=== PATIENT | female | born 1995 | race Two or more races ===

== ENCOUNTER 2024-10-11 17:10 | Emergency (ER) | payer MEDICAID, OTHER ==
[~2024-10-11] VITALS: Ht 154.9 cm; Wt 68.0 kg
[2024-10-11 18:40] LABS: Urine Bacteria FEW /hpf (None Seen); Urine Blood 3+ /uL (Negative); Urine Clarity Turbid (Clear); Urine Color Colorless (Yellow); Urine Protein, UAD Negative (Negative); Urine Specific Gravity 1.005 (1.001-1.035); Urine Sperm PRESENT /hpf (None Seen); Urine Squamous Epithelial Cell FEW /hpf (<5); Urine Urobilinogen Normal (Negative); Urine WBC 5 /hpf (0 - 5)
[2024-10-11 19:20] VITALS: BP 102/68; PULSE 93; RESP 18; TEMP 98; O2SAT 98
--- NOTE | 2024-10-11 20:34 | ED.PDOC ---
History of Present Illness HPI Comments 29 y/o F presents with c/o vaginal bleeding, today. Patient endorses on being 12x weeks , currently, and noticing blood when she wipe, this evening, with no prior Hx of in the past. She comments on having established care with an EGG PACKER, currently, and last receiving an US, earlier, this month. She denies any abdominal pain, nausea, vomiting, diarrhea, or other symptoms at this time. Chief Complaint: Vaginal Bleed Time Seen by MD: 20:20 Reviewed Notes: Nurses Notes, Medications, Allergies Allergies: Coded Allergies: NO KNOWN ALLERGIES (Unverified , 10/11/24) Information Source: Patient Mode of Arrival: Ambulatory Past Medical History PAST MEDICAL HISTORY: Denies Surgical History: Denies all surgeries LAP MAKER History: Denies all LAP MAKER Hx Family History Family History: Unknown Social History Smoker: Non-Smoker Alcohol: Denies ETOH Use Drugs: Denies Drug Use Lives In: Home Genitourinary: reports: abnormal vagina bleeding All Other Systems: Reviewed and Negative (negative unless otherwise stated above or in HPI) Physical Exam General Appearance: No Apparent Distress, Normal HEENT: Normal ENT Inspection, Pharynx Normal, TMs Normal Neck: Full Range of Motion, Non-Tender, Normal, Normal Inspection Respiratory: Chest Non-Tender, Lungs Clear, No Accessory Muscle Use, No Respiratory Distress, Normal Breath Sounds Cardiovascular: No Edema, No JVD, No Murmur, No Gallop, Normal Peripheral Pulses, Regular Rate/Rhythm Breast Exam: Deferred Gastrointestinal: No Organomegaly, Non Tender, No Pulsatile Mass, Normal Bowel Sounds, Soft Genitalia: Deferred Pelvic: Deferred Rectal: Deferred Extremities: No calf tenderness, Normal capillary refill, Normal inspection, Normal range of motion, Non-tender, No pedal edema Musculoskeletal : Apperance: Normal Neurologic: Alert, register repairer II-XII nml as Tested, No Motor Deficits, Normal Affect, Normal Mood, No Sensory Deficits Cerebellar Function: Normal Reflexes: Normal Skin: Dry, Normal Color, Warm Lymphatic: No Adenopathy Was a procedure done? Was a procedure done?: No Differential Dx Considerations may include: Threatened X-Ray, Labs, Meds, VS Vital Signs Date Time Temp Pulse Resp B/P (MAP) Pulse Ox O2 Delivery O2 Flow Rate FiO2 10/11/24 19:20 93 18 98 Room Air* 0 21 10/11/24 19:20 98.0 93 18 102/68 (79) 98 98.0 10/11/24 17:43 98.8 93 16 103/69 (80) 98 Lab Test 10/11/24 18:20 Range/Units Urine Color Colorless Yellow Urine Clarity Turbid H Clear Urine pH 7.0 5.0-9.0 Urine Specific [place] 1.005 1.001-1.035 Urine Protein Negative Negative Urine Ketones Negative Negative Urine Blood 3+ H Negative /uL Urine Nitrite Negative Negative Urine Bilirubin Negative Negative Urine Urobilinogen Normal Negative mg/dL Urine Leukocyte Esterase Negative Negative /uL Urine RBC 37 0 - 4 /hpf Urine WBC 5 0 - 5 /hpf Urine Squamous Epithelial Cells Few <5 /hpf Urine Bacteria Few H None Seen /hpf Urine Sperm Present None Seen /hpf Urine Glucose Normal Normal mg/dL Urine Test Positive Negative Time of 1ST Reevaluation: 20:50 Reevaluation 1ST: Unchanged Patient Education/Counseling: Diagnosis, Treatment Family Education/Counseling: No Family Present Critical Care Note Critical Care Time?: No Stability Stability form required: No Heart Score Heart Score: Heart Score Response (Comments) Value History N/A 0 EKG N/A 0 Age N/A 0 Risk Factors N/A 0 Troponin N/A 0 Total 0 I personally scribed for VENKAT MARQUES MD ([email or web address]) on 10/11/24 at 20:34. Electronically submitted by Juan Mares [email or web address]). VENKAT MARQUES MD Oct 11, 2024 20:34
[2024-10-11 20:40] LABS: Basophils # (auto) 0.1 10 ^3/uL (0-0.2); Basophils % (auto) 0.7 % (0.0-2.0); Eosinophils # (auto) 0.2 10 ^3/uL (0-0.8); Eosinophils % (auto) 1.2 % (0.0-7.0); Hematocrit 43.7 % (36.0-46.0); Lymphocytes # (auto) 3.3 10 ^3/uL (0.4-5.4); Mean Corpuscular Hemoglobin 30.2 pg (28.0-32.0); Mean Corpuscular Hgb Conc. 34.3 g/dL (32.0-36.0); Mean Corpuscular Volume 88.2 fL (80.0-100.0); Monocytes # (auto) 0.9 10 ^3/uL (0-1.3); Monocytes % (auto) 6.4 % (0.0-12.0); Neutrophils # (auto) 9.3 10 ^3/uL (1.6-8.6); Neutrophils % (auto) 67.7 % (37.0-80.0); Nucleated Red Blood Cells % 0.1 %; Platelet Count (auto) 308 10^3/uL (140-450); Red Blood Cells 4.95 10^6/uL (4.0-5.20); Red Cell Distribution Width 13.4 % (11.8-14.3); White Blood Cell 13.8 10^3/uL (4.4-10.8)
== END 2024-10-11 23:34 | disposition left against medical advice (07) ==
LOC: ER 17:10
DX: O20.9 Hemorrhage in early pregnancy, unspecified (principal); Z3A.12 12 weeks gestation of pregnancy
CPT/HCPCS: 36415; 81001; 81025; 84702; 85025

== ENCOUNTER 2025-03-23 11:10 | Inpatient (IN) | payer MEDICAID ==
[2025-03-23] VITALS (14 sets, daily range): BP systolic 104–137; BP diastolic 63–92; PULSE 88–126; RESP 12–18; TEMP 97.9–98.9; O2SAT 97–99
[~2025-03-23] VITALS: Ht 139.7 cm; Wt 72.1 kg
[2025-03-23] MEDS: LACTATED RINGER'S 1,000 ML IV SCH (11:30)
[2025-03-23] MEDS: LACTATED RINGER'S 1,000 ML IV ONE (11:30)
[2025-03-23 12:12] LABS: Basophils # (auto) 0.1 10 ^3/uL (0-0.2); Eosinophils # (auto) 0.1 10 ^3/uL (0-0.8); Eosinophils % (auto) 0.7 % (0.0-7.0); Hematocrit 44.2 % (36.0-46.0); Lymphocytes # (auto) 2.3 10 ^3/uL (0.4-5.4); Lymphocytes % (auto) 20.3 % (10.0-50.0); Mean Corpuscular Hemoglobin 31.6 pg (28.0-32.0); Mean Corpuscular Volume 92.9 fL (80.0-100.0); Monocytes # (auto) 0.8 10 ^3/uL (0-1.3); Monocytes % (auto) 7.2 % (0.0-12.0); Neutrophils # (auto) 7.9 10 ^3/uL (1.6-8.6); Neutrophils % (auto) 70.8 % (37.0-80.0); Nucleated Red Blood Cells % 0.1 %; Platelet Count (auto) 250 10^3/uL (140-450); Red Blood Cells 4.75 10^6/uL (4.0-5.20); Red Cell Distribution Width 13.9 % (11.8-14.3); White Blood Cell 11.2 10^3/uL (4.4-10.8)
[2025-03-23] MEDS: ceFAZolin 2 GM/D5W50ml 50 ML IV ONE (12:13)
[2025-03-23 12:25] LABS: INR 0.92 (0.9-1.15); Partial Thromboplastin Time 26.2 SEC (24.5-34.5); Prothrombin Time 9.8 sec (9.3-11.8)
[2025-03-23 12:28] LABS: Alanine Aminotransferase 75 U/L (7-40); Albumin 4.1 g/dL (3.2-4.8); Alkaline Phosphatase 499 U/L (46-116); Anion Gap 9 (5-15); Aspartate Aminotransferase 54 U/L (<34); BUN/Creatinine Ratio 10.6 (10.0-20.0); Bilirubin, Total 0.7 mg/dL (0.2-1.0); Blood Urea Nitrogen < 5 mg/dL (9-23); Calcium 9.1 mg/dL (8.7-10.4); Carbon Dioxide 22 mmol/L (20-31); Chloride 105 mmol/L (98-107); Glucose 91 mg/dL (74-106); Potassium 3.7 mmol/L (3.5-5.1); Sodium 136 mmol/L (136-145); Total Protein 7.6 g/dL (5.7-8.2)
[2025-03-23] MEDS ORDERED: HYDR-4072 PO (12:32)
[2025-03-23] MEDS ORDERED: IBUP-1456 PO (12:32)
[2025-03-23] MEDS ORDERED: CEPH500C PO (12:32)
[2025-03-23] MEDS ORDERED: DOCU-94 PO (12:32)
[2025-03-23 12:45] LABS: Urine Bacteria FEW /hpf (None Seen); Urine Blood 1+ /uL (Negative); Urine Clarity Turbid (Clear); Urine Color Colorless (Yellow); Urine Protein, UAD Negative (Negative); Urine Specific Gravity 1.004 (1.001-1.035); Urine Squamous Epithelial Cell MANY /hpf (<5); Urine Urobilinogen Normal (Negative); Urine WBC 55 /HPF (0-5)
[2025-03-23] MEDS ORDERED: ONDANSETRON HCL 4 MG/2 ML VIAL IV PRN ×2 (12:45→14:30)
[2025-03-23] MEDS: GUM (CHEWING) 1 GUM CHEW CHEW ONE (12:45)
[2025-03-23] MEDS: LACT. RINGERS/OXYTOCIN 20UNITS 1,000 ML IV ONE (12:45)
[2025-03-23] MEDS ORDERED: fentaNYL CITRATE 100 MCG/2 ML VL ONE (12:55)
[2025-03-23] MEDS ORDERED: oxyTOCIN 10 UNIT/ML 10ML VIAL ONE (12:55)
[2025-03-23] MEDS ORDERED: MORPHINE SULF PF 5 MG/10 ML VIAL ONE (12:55)
[2025-03-23] MEDS ORDERED: DexAMETHasone SOD PHOS 10MG/1ML VIAL INJ ONE (12:56)
[2025-03-23] MEDS ORDERED: KETOROLAC TROMETH 30 MG/ML 1ML VIAL ONE (12:56)
[2025-03-23] MEDS ORDERED: ONDANSETRON HCL 4 MG/2 ML VIAL ONE (12:56)
[2025-03-23 13:03] LABS: Amphetamine Screen, Urine Neg (NEGATIVE); Barbiturate Scree,Urine Neg (NEGATIVE); Benzodiazephine Screen, Urine Neg (NEGATIVE); Cannabinoid Screen, Urine Neg (NEGATIVE); Cocaine Screen, Urine Neg (NEGATIVE); Opiate Scree,Urine Neg (NEGATIVE); Phencyclidine Screen, Urine Neg (NEGATIVE)
[2025-03-23] MEDS ORDERED: ePHEDrine SULFATE 50 MG/ML AMP ONE (13:32)
[2025-03-23] MEDS ORDERED: HYDROmorphone HCL 2 MG/ML VL/or syr IV PRN (14:30)
[2025-03-23] MEDS ORDERED: diphenhdrAMINE HCL 50 MG/1 ML VL IV PRN (14:30)
[2025-03-23] MEDS: NALBUPHINE HCL 10 MG/1ml INJECTION IV ONE (14:30)
[2025-03-23] MEDS ORDERED: NALOXONE HCL 0.4 MG/ML VIAL IV PRN (14:30)
--- NOTE | 2025-03-23 14:56 | DVHHP2 ---
Chief Complaints Chief Complaints DATE OF OPERATION:03/23/25 PREOPERATIVE DIAGNOSES: [iup at 33 wks with demise,oligohydramnia,noncompliant with care,desires rcs] POSTOPERATIVE DIAGNOSES: [same,meconium] OPERATION PERFORMED: Repeat Section FINDINGS: [b] . Apgars of [0] and [0]. Weight meconium amniotic fluid. Placenta and three-vessel were intact. Normal tubes, ovaries, and uterus. Moderate scar tissue. SURGEON: Moni Dial D.O. FREELANCE ART DIRECTOR: quality control technician, [chantal rodriguez md]. ANESTHESIOLOGIST: [dg gaston M.D. ANESTHESIA: [Duramorph spinal, regional]. COMPLICATIONS: [none]. ESTIMATED BLOOD LOSS: [500] mL. BLOOD PRODUCTS USED: [na]. PROCEDURE IN DETAIL: The patient was taken to the operating room, placed in sitting position, and spinal was placed without difficulty. She was then prepped and draped in a sterile fashion. A low Pfannenstiel incision was made scapel. At this point, it was carried down through the rectus fascia, nicked in the midline, and carried laterally. The rectus muscles were in the midline. Peritoneum was identified and entered with sharp dissection. Vesicouterine peritoneum was taken off the lower uterine segment. A lower uterine transverse incision was made with a scalpel down the chorionic membranes, ruptured with hemostat. Infant was in vertex position. One hand was placed in the lower uterine segment. Head was essentially delivered spontaneously. there was no fetalm heart tone,zero amniotic fld and thick meconium noted. Cord was cut. The infant was handed off to the awaiting Respiratory. At this point, umbilical blood sample was taken. Placenta was removed. Uterus was exteriorized, cleared off all clots and debris, irrigated, and closed with a double layer of 0-Vicryl. The vesicouterine peritoneum was incorporated into this closure. We had complete hemostasis. EBL was [500] mL. The instrument, lap, and sponge count was correct x1. The uterus was placed back into the peritoneum. The peritoneal cavity was re-inspected and the lower uterine incision with good hemostasis. We closed the peritoneum with running continuous of 2-0 Vicryl. The Rectus Fascia was closed with 0-PDS, running continuous, looped-0. The skin was closed undermined, irrigated, and close with annette. CONDITION: The patient's and the 's condition is stable and but guarded. Allergies and Medications Allergies: Coded Allergies: NO KNOWN ALLERGIES (Unverified , 10/11/24) Home Meds Active Scripts Ibuprofen (Ibuprofen) 800 Mg Tab, 800 MG PO TID PRN for 4 Days, #12 TAB Prov:MONI DIAL DO 03/23/25 Hydrocodone-Acetaminophen (Hydrocodone/Acetaminophen 10-325 mg) 1 Tab Tab, 1 TAB PO Q6HPRN PRN for 6 Days, #24 TAB Prov:MONI DIAL DO 03/23/25 Docusate Sodium (Colace) 100 Mg Cap, 1 CAP PO BID, #60 CAP 2 Refills Prov:MONI DIAL DO 03/23/25 Cephalexin Monohydrate (Cephalexin) 500 Mg Cap, 500 MG PO QID PRN for 7 Days, #28 CAP Prov:MONI DIAL DO 03/23/25 Current Medications Current Medications Medications (Trade) Dose Ordered Sig/Keith Route PRN Reason Start Time Stop Time Status Last Admin Lactated Ringer's 1,000 ml @ 125 mls/hr Q8H IV 03/23/25 11:30 Ondansetron HCl (Zofran) 4 mg Q4HP PRN IV NAUSEA / VOMITING 03/23/25 12:45 03/23/25 14:27 DC Cefazolin Sodium 50 ml @ 100 mls/hr Q8H IV 03/23/25 20:00 03/24/25 12:29 Diphenhydramine HCl (Benadryl Injection) 25 mg Q4HP PRN IV FOR ITCHING 03/23/25 14:30 Ondansetron HCl (Zofran) 4 mg Q4HP PRN IV NAUSEA / VOMITING 03/23/25 14:30 Naloxone HCl (Narcan) 0.2 mg Q5M PRN IV For respirations < than 10/min 03/23/25 14:30 03/23/25 14:36 DC Hydromorphone HCl (Dilaudid Injection) 0.5 mg Q15M PRN IV SEVERE PAIN (7-10 PAIN SCALE) 03/23/25 14:30 03/23/25 15:01 Assessment/Plan Assessment Admitting Diagnosis: Repeat Section Intrauterine Demise 33 weeks Visit Coding OBGYN Date of Service: Mar 23, 2025 Billing Provider: MONI DIAL DO WAD IMPREGNATOR Common Visit Codes: [id number] OBS CARE (HIGH) WAD IMPREGNATOR Procedure Codes: [id number] W/ CARE MONI DIAL DO Mar 23, 2025 14:56
--- NOTE | 2025-03-23 15:12 | DVHOP2 ---
Operative Report DATE OF OPERATION:03/23/25 PREOPERATIVE DIAGNOSES: [iup at 33wks with demise,oligohydramnia,non copliancy with care,desires rcs] POSTOPERATIVE DIAGNOSES: [same,meconium fld,apgars 0/0] OPERATION PERFORMED: Repeat Section FINDINGS: [b] . Apgars of [0] and [0]. [scant amniotic meconium scant] amniotic fluid. Placenta and three-vessel were intact. Normal tubes, ovaries, and uterus. Moderate scar tissue. SURGEON: Moni Dial D.O. BENDER MACHINE OPERATOR: test lab technician, [michael harley]. ANESTHESIOLOGIST: Lilian york ANESTHESIA: [Duramorph spinal, regional]. COMPLICATIONS: [none]. ESTIMATED BLOOD LOSS: [500] mL. BLOOD PRODUCTS USED: [none]. PROCEDURE IN DETAIL: The patient was taken to the operating room, placed in sitting position, and spinal was placed without difficulty. She was then prepped and draped in a sterile fashion. A low Pfannenstiel incision was made scapel. At this point, it was carried down through the rectus fascia, nicked in the midline, and carried laterally. The rectus muscles were in the midline. Peritoneum was identified and entered with sharp dissection. Vesicouterine peritoneum was taken off the lower uterine segment. A lower uterine transverse incision was made with a scalpel down the chorionic membranes, ruptured with hemostat meconium fld was noted very scant. Infant was in vertex position. One hand was placed in the lower uterine segmentthe infant was delivered ,he was very macerated and thick scant meconium was noted. Placenta was removed. cultures was obtained. Uterus was exteriorized, cleared off all clots and debris, irrigated, and closed with a double layer of 0-Vicryl. The vesicouterine peritoneum was incorporated into this closure. We had complete hemostasis. EBL was [500] mL. The instrument, lap, and sponge count was correct x1. The uterus was placed back into the peritoneum. The peritoneal cavity was re-inspected and the lower uterine incision with good hemostasis. We closed the peritoneum with running continuous of 2-0 Vicryl. The Rectus Fascia was closed with 0-PDS, running continuous, looped-0. The skin was closed undermined, irrigated, and close with annette. CONDITION: The patient's and the infant's condition is stable and but guarded. Visit Coding OBGYN Date of Service: Mar 23, 2025 Billing Provider: MONI DIAL DO BRIDGE MAINTENANCE WORKER Common Visit Codes: [id number] OBS CARE (HIGH) BRIDGE MAINTENANCE WORKER Procedure Codes: [id number] DELIVERY ONLY MONI DIAL DO Mar 23, 2025 15:12
--- NOTE | 2025-03-23 15:14 | POSTOP ---
Post-Operative Note Post-Operative Note Preop Diagnosis iup at 33wks with meconium,oligo hydramnia , demise,desires rcs ,previous csx2 Postop Diagnosis: same,meconium,oligo Operation performed rcs Specimen baby boy,apgars 0-0,macerated baby boy Anesthesia: Regional Anesthesiologist: maria dolores cullen Blood Loss(fluid mgmt) 500ml Surgeon Connor Dial Locomotive Crane Operator Helper fischl Implant na Complications & Mgmt none Date 03/23/25 Time 15:12 Visit Coding OBGYN Date of Service: Mar 23, 2025 Billing Provider: CONNOR DIAL DO TABLE RUNNER Common Visit Codes: [id number] OBS CARE (HIGH) TABLE RUNNER Procedure Codes: [id number] DELIVERY ONLY CONNOR DIAL DO Mar 23, 2025 15:14
[2025-03-23 18:33] LABS: Protein, Urine 10.5 mg/dL (1-14)
[2025-03-23 18:35] LABS: Creatinine, Urine 31.68 mg/dL (30.0-125.0); Urine Protein/Creatinine Ratio 0.33
--- NOTE | 2025-03-23 18:53 | DVHHP ---
ADMIT DATE: 03/23/2025 CHIEF COMPLAINT: demise. HISTORY OF PRESENT ILLNESS: The patient is a 29-year-old 3, para 2 with EDC 05/10/2025. Estimated gestational age of 33 weeks, admitted for demise, repeat section due to demise. The patient has had previous sections x2. [facility], but appeared not to follow instructions appropriately, so the patient was sent to [facility] to get established there to have better support. The patient was sent for MRI to make sure that there was no accreta since she has had previous sections x2 and there was some hypervascularity area. The patient was seen on 01/17/2025 and 01/31/2025. She missed her appointment on 01/31/2025. She missed her appointment at 5:13. She canceled her appointment and did not follow up. Today, she presented to the [facility] office and was noted to have demise. The baby had appeared to be macerated, measuring 26 weeks. The patient was sent to my office. I spoke to the patient and inquired about her lack of keeping her appointment. The patient stated she had no transportation a couple of times and she stated that she had no bleeding or discharge, however, appeared to start with some pain today. I informed the patient that this is her third and she knew the importance of appropriate followup. In addition, I brought her to my private office so she can follow instruction better and not be confused, but she failed to do so. Subsequently, she missed a couple of appointments and now she has demise. PAST MEDICAL HISTORY: None. PAST SURGICAL HISTORY: . SOCIAL HISTORY: None. FAMILY HISTORY: None. OBSTETRIC AND GYNECOLOGIC HISTORY: Blood type O positive. Two sections. MRI normal. REVIEW OF SYSTEMS: Consistent with HPI. PHYSICAL EXAMINATION: VITAL SIGNS: Stable, afebrile. HEENT: Within normal limits. CARDIOVASCULAR: Regular rate and rhythm. LUNGS: Clear to auscultation. BREASTS: Symmetrical, no masses. ABDOMEN: Soft, nontender. PELVIC: Vagina warm to touch. Cervix is closed. No heart noted. EXTREMITIES: No clubbing, cyanosis, or edema. IMPRESSION: * Intrauterine at 33 weeks with demise. * Previous sections x2. * Desires repeat section. * Noncompliance. PLAN: Repeat section. Informed consent obtained. Risks and complications of surgery including infection, bleeding, hematoma formation, injury to bowel and bladder and surrounding organ, possibility of DVT, pulmonary embolism, and risks of anesthesia discussed with the patient. Options reviewed. All questions answered. The patient fully understands. She wishes to proceed with planned procedure. DO KARTHIK Forman TID: [id number] RECEIPT: [id number]
[2025-03-23] MEDS: ceFAZolin 1GM/50ML 50 ML IV SCH (19:38)
[2025-03-23 22:03] LABS: Hepatitis B Surface Antigen Negative (Negative); Hepatitis C Antibody Negative (Negative)
[2025-03-23 22:29] LABS: Basophils # (auto) 0.1 10 ^3/uL (0-0.2); Basophils % (auto) 0.4 % (0.0-2.0); Eosinophils # (auto) 0 10 ^3/uL (0-0.8); Hematocrit 37.9 % (36.0-46.0); Hemoglobin 12.9 g/dL (12.2-16.2); Lymphocytes # (auto) 1.2 10 ^3/uL (0.4-5.4); Lymphocytes % (auto) 5.8 % (10.0-50.0); Mean Corpuscular Hemoglobin 31.6 pg (28.0-32.0); Mean Corpuscular Hgb Conc. 33.9 g/dL (32.0-36.0); Mean Corpuscular Volume 93.1 fL (80.0-100.0); Monocytes # (auto) 0.6 10 ^3/uL (0-1.3); Monocytes % (auto) 2.7 % (0.0-12.0); Neutrophils % (auto) 91.1 % (37.0-80.0); Platelet Count (auto) 262 10^3/uL (140-450); Red Blood Cells 4.07 10^6/uL (4.0-5.20); Red Cell Distribution Width 14.2 % (11.8-14.3); White Blood Cell 20.8 10^3/uL (4.4-10.8)
[2025-03-23 22:48] LABS: Albumin 3.4 g/dL (3.2-4.8); Anion Gap 10 (5-15); BUN/Creatinine Ratio 9.6 (10.0-20.0); Bilirubin, Total 0.7 mg/dL (0.2-1.0); Calcium 9.3 mg/dL (8.7-10.4); Carbon Dioxide 22 mmol/L (20-31); Chloride 106 mmol/L (98-107); Sodium 138 mmol/L (136-145); Total Protein 6.4 g/dL (5.7-8.2)
[2025-03-23 22:53] LABS: Alanine Aminotransferase 56 U/L (7-40); Alkaline Phosphatase 381 U/L (46-116); Aspartate Aminotransferase 46 U/L (<34); Blood Urea Nitrogen 5 mg/dL (9-23); Glucose 147 mg/dL (74-106)
[2025-03-24] VITALS (16 sets, daily range): BP systolic 90–117; BP diastolic 51–76; PULSE 76–113; RESP 16–17; TEMP 98.1–98.6; O2SAT 95–100
[2025-03-24] MEDS: ACETAMINOPHEN IV 1000 MG/100ML (10MG/ML) IV PRN (01:12)
[2025-03-24 06:44] LABS: Basophils # (auto) 0 10 ^3/uL (0-0.2); Basophils % (auto) 0.3 % (0.0-2.0); Eosinophils # (auto) 0 10 ^3/uL (0-0.8); Hematocrit 31.3 % (36.0-46.0); Hemoglobin 10.7 g/dL (12.2-16.2); Lymphocytes # (auto) 1.8 10 ^3/uL (0.4-5.4); Lymphocytes % (auto) 10.3 % (10.0-50.0); Mean Corpuscular Hgb Conc. 34.3 g/dL (32.0-36.0); Mean Corpuscular Volume 93.2 fL (80.0-100.0); Monocytes # (auto) 1.4 10 ^3/uL (0-1.3); Monocytes % (auto) 7.7 % (0.0-12.0); Neutrophils # (auto) 14.4 10 ^3/uL (1.6-8.6); Neutrophils % (auto) 81.7 % (37.0-80.0); Platelet Count (auto) 231 10^3/uL (140-450); Red Blood Cells 3.36 10^6/uL (4.0-5.20); Red Cell Distribution Width 14.1 % (11.8-14.3); White Blood Cell 17.6 10^3/uL (4.4-10.8)
--- NOTE | 2025-03-24 07:09 | DVHPN2 ---
Chief Complaints Patient reports: No new complaints Nursing reports: No new complaints Objective Vitals Vital Signs Date Time Temp Pulse Resp B/P (MAP) Pulse Ox O2 Delivery O2 Flow Rate FiO2 03/24/25 06:00 89 98/68 (78) 97 03/24/25 04:00 17 03/24/25 03:00 98.1 98.1 03/23/25 19:00 Room Air 03/23/25 14:12 99 Medications Current Medications Medications (Trade) Dose Ordered Sig/Keith Route PRN Reason Start Time Stop Time Status Last Admin Acetaminophen (Ofirmev) 1,000 mg Q8HPRN PRN IV MODERATE PAIN (4-6 PAIN SCALE) 03/23/25 16:45 03/24/25 16:44 03/24/25 01:12 Cefazolin Sodium 50 ml @ 100 mls/hr Q8H IV 03/23/25 20:00 03/24/25 12:29 03/24/25 03:58 Diphenhydramine HCl (Benadryl Injection) 25 mg Q4HP PRN IV FOR ITCHING 03/23/25 14:30 Lactated Ringer's 1,000 ml @ 125 mls/hr Q8H IV 03/23/25 11:30 03/23/25 19:38 Ondansetron HCl (Zofran) 4 mg Q4HP PRN IV NAUSEA / VOMITING 03/23/25 14:30 Lungs: Normal Abdominal: Soft Extremities: Normal Studies Laboratory Tests 03/24/25 06:18 03/23/25 22:16 Test 03/23/25 22:16 Range/Units Serum Glucose 147 H 74-106 mg/dL Ass/Plan Assessment s/p rcs Plan supportive care Visit Coding OBGYN Date of Service: Mar 24, 2025 Billing Provider: CONNOR KINGSLEY DO SOFTWARE PROGRAMMER Common Visit Codes: [id number] INP/OBS CARE (HIGH) CONNOR KINGSLEY DO Mar 24, 2025 07:09
[2025-03-24] MEDS ORDERED: BISACODYL 10 MG RECT SUPP PR PRN (11:15)
[2025-03-24] MEDS ORDERED: HYDROcodone-ACET 5/325MG TAB PO PRN (11:15)
[2025-03-24] MEDS: IBUPROFEN 800 MG TAB PO PRN (12:23)
[2025-03-24] MEDS: SIMETHICONE 80 MG CHEWABLE TABLET PO SCH (12:23)
[2025-03-24] MEDS: AMMONIA 0.33 ML INHALANT IN ONE (13:12)
[2025-03-24] MEDS: HYDROcodone-ACET 5/325MG TAB PO PRN (19:06)
[2025-03-24] MEDS: DOCUSATE SOD 100 MG CAP PO SCH (21:57)
[2025-03-24 23:57] LABS: Basophils # (auto) 0.1 10 ^3/uL (0-0.2); Basophils % (auto) 0.8 % (0.0-2.0); Eosinophils # (auto) 0.1 10 ^3/uL (0-0.8); Eosinophils % (auto) 0.6 % (0.0-7.0); Hematocrit 30.1 % (36.0-46.0); Hemoglobin 10.2 g/dL (12.2-16.2); Lymphocytes # (auto) 3.4 10 ^3/uL (0.4-5.4); Mean Corpuscular Hemoglobin 31.5 pg (28.0-32.0); Mean Corpuscular Hgb Conc. 33.8 g/dL (32.0-36.0); Mean Corpuscular Volume 93.1 fL (80.0-100.0); Monocytes # (auto) 1.2 10 ^3/uL (0-1.3); Monocytes % (auto) 8.6 % (0.0-12.0); Neutrophils # (auto) 9.4 10 ^3/uL (1.6-8.6); Nucleated Red Blood Cells % 0.1 %; Platelet Count (auto) 240 10^3/uL (140-450); Red Blood Cells 3.23 10^6/uL (4.0-5.20); White Blood Cell 14.2 10^3/uL (4.4-10.8)
--- NOTE | 2025-03-25 00:45 | DVHPN2 ---
Progress Note Date Seen: Mar 25, 2025 Subjective S: Lochia minimal. Regular diet well tolerated. Ambulating and voiding well w/o feeling dizzy or lightheaded. Pain relieved with oral analgesics. Passing flatus but no BM yet. Coping well with loss. Family supportive. Desires and Requests to be discharged today vital signs Vital Sign Date Time Temp Pulse Resp B/P (MAP) Pulse Ox O2 Delivery O2 Flow Rate FiO2 03/24/25 23:00 98.6 80 16 117/73 (88) 97 98.6 03/24/25 19:00 Room Air 03/23/25 14:12 99 Total Intake and Output 03/24/25 03/24/25 03/25/25 15:00 23:00 07:00 Output Total 2365 ml 700 ml Balance -2365 ml -700 ml medications Current Medications Medications Dose Ordered Sig/Keith Route Start Time Stop Time Status Last Admin Dose Admin Diphenhydramine HCl 25 mg Q4HP PRN IV 03/23/25 14:30 Cancel Ondansetron HCl 4 mg Q4HP PRN IV 03/23/25 14:30 Cancel Dimethicone 80 mg QID PO 03/24/25 12:00 03/24/25 21:57 80 MG Bisacodyl 10 mg DAILYP PRN MD 03/24/25 11:15 Ibuprofen 800 mg Q8HP PRN PO 03/24/25 11:15 03/24/25 23:02 800 MG Acetaminophen/ Hydrocodone Bitart 1 tab Q4HPRN PRN PO 03/24/25 11:15 03/24/25 19:06 1 TAB Acetaminophen/ Hydrocodone Bitart 2 tab Q4HPRN PRN PO 03/24/25 11:15 Docusate Sodium 100 mg Q12HR PO 03/24/25 22:00 03/24/25 21:57 100 MG laboratory and microbiology Laboratory Tests 03/24/25 23:46 03/23/25 22:16 Test 03/23/25 22:16 Range/Units Serum Glucose 147 H 74-106 mg/dL Objective O: A&O x3 NAD. Afebrile, VSS Chest: heart and lung sounds normal. Breasts: Nipples intact w/o cracks or soreness Abdomen: normal BS, soft, non-tender, no rebound or guarding, fundus firm @ U- 1, Lower abdominal Incision site with Sylke dressing on, same clean, dry and intact. About 1cm diameter area on the right edge of dressing with dry old blood noted. No edema, erythema or induration Extremities: no edema or tenderness Lochia - minimal Labs: see lab reports Assessment/Plan 29 yo now G3, 2102 Post operative & ppd #2 s/p Repeat Section of a demised fetus at 33w 1d, doing well. Anemia Blood Type: A Rh: Positive Rubella Immune Pain control with oral medications Bowel regimen: Increase fluid intake and fiber in diet, Laxative PRN PP BCM Plan: Undecided Discharge plan: May discharge home later today if condition remains stable Plan discussed with: Patient, Spouse Visit Coding OBGYN Date of Service: Mar 25, 2025 Billing Provider: BERNA OLVERA CNM CRTS Common Visit Codes: [id number] INP/OBS CARE(HIGH) BERNA OLVERA CNM Mar 25, 2025 00:45
[2025-03-25 03:00] VITALS: BP 120/73; PULSE 87; RESP 16; TEMP 98.8; O2SAT 96
[2025-03-25 07:00] VITALS: BP 118/76; PULSE 78; RESP 18; TEMP 98; O2SAT 96
--- NOTE | 2025-03-25 08:26 | DVHDS2 ---
Discharge Summary Date of Admission Mar 23, 2025 at 11:10 Date of Discharge: Mar 25, 2025 Admitting Diagnosis Intrauterine at 33 weeks with demise. Previous sections x2. Labs/Diagnostic Data: Laboratory Results Test 03/24/25 23:46 03/23/25 22:16 03/23/25 12:25 03/23/25 12:22 White Blood Count 14.2 10^3/uL (4.4-10.8) Red Blood Count 3.23 10^6/uL (4.0-5.20) Hemoglobin 10.2 g/dL (12.2-16.2) Hematocrit 30.1 % (36.0-46.0) Mean Corpuscular Volume 93.1 fL (80.0-100.0) Mean Corpuscular Hemoglobin 31.5 pg (28.0-32.0) Mean Corpuscular Hemoglobin Concent 33.8 g/dL (32.0-36.0) Red Cell Distribution Width 14.0 % (11.8-14.3) Platelet Count 240 10^3/uL (140-450) Mean Platelet Volume 7.7 fL (6.9-10.8) Neutrophils (%) (Auto) 66.0 % (37.0-80.0) Lymphocytes (%) (Auto) 24.0 % (10.0-50.0) Monocytes (%) (Auto) 8.6 % (0.0-12.0) Eosinophils (%) (Auto) 0.6 % (0.0-7.0) Basophils (%) (Auto) 0.8 % (0.0-2.0) Neutrophils # (Auto) 9.4 10 ^3/uL (1.6-8.6) Lymphocytes # (Auto) 3.4 10 ^3/uL (0.4-5.4) Monocytes # (Auto) 1.2 10 ^3/uL (0-1.3) Eosinophils # (Auto) 0.1 10 ^3/uL (0-0.8) Basophils # (Auto) 0.1 10 ^3/uL (0-0.2) Nucleated Red Blood Cells 0.1 % Sodium Level 138 mmol/L (136-145) Potassium Level 4.0 mmol/L (3.5-5.1) Chloride Level 106 mmol/L (98-107) Carbon Dioxide Level 22 mmol/L (20-31) Anion Gap 10 (5-15) Blood Urea Nitrogen 5 mg/dL (9-23) Creatinine 0.52 mg/dL (0.550-1.02) Glomerular Filtration Rate Calc 131 mL/min (>90) BUN/Creatinine Ratio 9.6 (10.0-20.0) Serum Glucose 147 mg/dL (74-106) Calcium Level 9.3 mg/dL (8.7-10.4) Total Bilirubin 0.7 mg/dL (0.2-1.0) Aspartate Amino Transferase (AST) 46 U/L (<34) Alanine Aminotransferase (ALT) 56 U/L (7-40) Alkaline Phosphatase 381 U/L (46-116) Total Protein 6.4 g/dL (5.7-8.2) Albumin 3.4 g/dL (3.2-4.8) Urine Color Colorless (Yellow) Urine Clarity Turbid (Clear) Urine pH 7.0 (5.0-9.0) Urine Specific [place] 1.004 (1.001-1.035) Urine Protein Negative (Negative) Urine Ketones Negative (Negative) Urine Blood 1+ /uL (Negative) Urine Nitrite Negative (Negative) Urine Bilirubin Negative (Negative) Urine Urobilinogen Normal mg/dL (Negative) Urine Leukocyte Esterase 3+ /uL (Negative) Urine RBC 3 /hpf (0 - 4) Urine Microscopic WBC 55 /HPF (0-5) Urine Squamous Epithelial Cells Many /hpf (<5) Urine Bacteria Few /hpf (None Seen) Urine Glucose Normal mg/dL (Normal) Urine Opiates Screen Neg (NEGATIVE) Urine Fentanyl Screen Neg (NEGATIVE) Urine Barbiturates Screen Neg (NEGATIVE) Urine Phencyclidine Screen Neg (NEGATIVE) Urine Amphetamines Screen Neg (NEGATIVE) Urine Benzodiazepines Screen Neg (NEGATIVE) Urine Cocaine Screen Neg (NEGATIVE) Urine Cannabinoids Screen Neg (NEGATIVE) Urine Creatinine 31.68 mg/dL (30.0-125.0) Urine Protein/Creatinine Ratio 0.33 Urine Total Protein 10.5 mg/dL (1-14) Test 03/23/25 11:30 Prothrombin Time 9.8 sec (9.3-11.8) Prothrombin Time INR 0.92 (0.9-1.15) Activated Partial Thromboplast Time 26.2 SEC (24.5-34.5) Uric Acid 4.6 mg/dL (3.1-7.8) Treponema pallidum Antibody Non-reactive (Negative) Hepatitis B Surface Antigen Negative (Negative) Hepatitis C Antibody Negative (Negative) Other Laboratory Tests 03/24/25 23:46 03/23/25 22:16 Brief Hx & Hospital Course: Ms Bhatti was admitted on 03/23/25 at 33w 1d demise EGA for Repeat C- section d/t h/o of previous C- section x2. Repeat section done on 03/25/2025 ( See Operative Note for details) Normal course; meeting postoperative and milestones w/o any problem or complications. Emotional support provided by hospital through social and Spiritual services dept. Family very supportive. Consults/Reason for consult Ms Bhatti was admitted on 03/23/25 at 33w 1d demise EGA for Repeat C- section d/t h/o of previous C- section x2. Repeat section done on 03/25/2025 ( See Operative Note for details) Normal course; afebrile, meeting postoperative and milestones w/o any problem or complications. Emotional support provided by hospital through social and Spiritual services dept. Family very supportive. Operations or Procedures Repeat Section Condition at Discharge: Stable Final Diagnosis/Problems List same,meconium,oligo Secondary Diagnosis: Anemia Discharge Disposition: Home Discharge Instruct/Medications Diet: Regular Diet comment: Routine regular diet rich in fiber, protein, iron and vitamin C with adequate fluid intake Activity: No Restrictions, As Tolerated Activity comment: Unrestricted. Advance as tolerated. Balance activities with rest periods. No heavy lifting, pushing or straining. Pelvic rest x 6weeks Follow Up/Referral: Post operative and self care instructions given. self care instructions given. emergency signs and symptoms including but not limited to pre-eclampsia precautions and signs of infection, PPH & of PPD reviewed with patient. Follow up with OB Provider in 1 week Medications: Ibuprofen Ferrous Sulfate Discharge Statement: Post operative and self care instructions given. self care instructions given. emergency signs and symptoms including but not limited to pre-eclampsia precautions and signs of infection, PPH & of PPD reviewed with patient. Follow up with OB Provider in 1 week "Patient was advised to return to the ER or call 911 if any headaches, dizziness, shortness of breath, chest pain, abdominal pain, bleeding, fevers, or worsening of medical condition. Patient was counseled about treatment plan, medications, possible side effects, patientverbalized understanding. All questions were answered to the best of my ability. This discharge took greater then 30 minutes in planning, reviewing documentation, counseling the patient, and discussing with other team members." ASSESSMENT ASSESSMENT Hospital Course Ms Bhatti was admitted on 03/23/25 at 33w 1d demise EGA for Repeat C- section d/t h/o of previous C- section x2. Repeat section done on 03/25/2025 ( See Operative Note for details) Normal course, afebrile; meeting postoperative and milestones w/o any problem or complications. Emotional support provided by hospital through social and Spiritual services dept. Family very supportive. Assessment same,meconium,oligo, Anemia Visit Coding OBGYN Date of Service: Mar 25, 2025 Billing Provider: BERNA OLVERA CNM ACCOUNTANT BOOKKEEPER Common Visit Codes: 75589-BHE/OBS DISCH DAY <30MIN BERNA OLVERA CNM Mar 25, 2025 08:26
[2025-03-25 08:31] VITALS: TEMP 36.7
== END 2025-03-25 09:33 | disposition home or self-care (01) | DRG 540 ==
LOC: LDRP 11:10
PROVIDERS: ADMIT Obstetrics & Gynecology; ATTEND Obstetrics & Gynecology
PROC: 10D00Z1 Extraction of Products of Conception, Low, Open Approach (ICD-10-PCS; principal; 2025-03-23 13:00)
DX: O77.0 Labor and delivery complicated by meconium in amniotic fluid (principal); O36.4XX0 Maternal care for intrauterine death, not applicable or unspecified; O34.211 Maternal care for low transverse scar from previous cesarean delivery; Z37.1 Single stillbirth; Z3A.33 33 weeks gestation of pregnancy; Z91.199 Patient's noncompliance with other medical treatment and regimen due to unspecified reason; O41.03X0 Oligohydramnios, third trimester, not applicable or unspecified; O90.81 Anemia of the puerperium
CPT/HCPCS: 36415; 80053; 80307; 81001; 82570; 84156; 84550; 85025; 85610; 85730; 86780; 86803; 86850; 86900; 86901; 87070; 87075; 87205; 87340; 94760; 94762; 96361; G0378; J0131; J1100; J1885; J2405; J2590